=== PATIENT | female | born 1935 | race Caucasian/White ===

== ENCOUNTER 2020-05-16 11:01 | Emergency (ER) | payer MEDICARE, OTHER, SELFPAY ==
[2020-05-16 11:21] VITALS: BP 103/50; PULSE 82; RESP 16; TEMP 36.9; O2SAT 99
--- NOTE | 2020-05-16 11:29 | ED.FEMALEGU ---
HPI - Female Genitourinary General Chief complaint: Urogenital-Female Stated complaint: possible uti Time Seen by Provider: 05/16/20 11:38 Source: patient and RN notes reviewed History of Present Illness HPI Narrative: Patient is an 85-year-old female who presents the urgent care with complaints of bilateral flank pain and a possible UTI. Patient states that she has been doing a lot of yard work recently and has decreased her water intake. Patient denies of any fever, chills, nausea, vomiting, abdominal pain. Patient has not taken anything [id number] for her symptoms. No other acute complaints. No acute distress noted. Patient read the plan of care. Related Data Home Medications Medication Instructions Recorded Confirmed Adult Low Dose Aspirin 05/16/20 Calcium 600 with Vitamin D3 05/16/20 Calcium with Vitamin D 05/16/20 atorvastatin 05/16/20 05/16/20 diltiazem HCl 05/16/20 levothyroxine 05/16/20 paroxetine HCl mg PO 05/16/20 Allergies Allergy/AdvReac Type Severity Reaction Status Date / Time Sulfa (Sulfonamide Allergy Intermediate Swelling Verified 06/17/19 10:00 Antibiotics) enalapril Allergy Unknown Verified 06/17/19 10:00 lisinopril Allergy Unknown Verified 06/17/19 10:00 Review of Systems Review of Systems: Narrative: CONSTITUTIONAL: Denies fever, chills, or sweats. EYES: Denies visual changes, redness, or discharge. ENT: Denies rhinorrhea, congestion, sore throat, or otalgia. CARDIOVASCULAR: Denies chest pain, palpitations, or edema. RESPIRATORY: Denies cough or dyspnea. GASTROINTESTINAL: Denies abdominal pain, nausea, vomiting, or diarrhea. GENITOURINARY: Denies dysuria or hematuria. SKIN: Denies rash or itching. MUSCULOSKELETAL: Denies back pain, joint pain, or myalgia. NEUROLOGIC: Denies headache, numbness, or weakness. All other systems reviewed are negative, except as documented in HPI. PMFSH Comments At the time of my signature, I reviewed and agree with the nursing past medical, surgical, social, and family history. There is no relevant family history pertinent to the patient complaint. Exam Narrative: Exam Narrative: GENERAL: This is a well-nourished, well-developed patient, in no apparent distress. HEAD: normocephalic, atraumatic. EYES: PERRL. Sclera clear/white. Vision is grossly intact. EARS: External ears normal NOSE: External nose normal with no obvious nasal discharge, nares without redness, no rhinorrhea. THROAT: Mucous membranes moist NECK: Neck supple GASTROINTESTINAL: Abdomen soft, non-tender, nondistended. SKIN: warm, intact with no suspicious lesions or rash, good texture and turgor. NEURO: awake, alert, and oriented to person, place and time. There were no obvious focal neurologic abnormalities. EXTREMITIES: No clubbing, cyanosis, or edema. BACK: Negative bilateral CVA tenderness Course Vital Signs Vital signs: Vital Signs Temperature 98.5 F 05/16/20 11:21 Pulse Rate 82 05/16/20 11:21 Respiratory Rate 16 05/16/20 11:21 Blood Pressure 103/50 L 05/16/20 11:21 Pulse Oximetry 99 05/16/20 11:21 Temperature 98.5 F 05/16/20 11:21 Pulse Rate 82 05/16/20 11:21 Respiratory Rate 16 05/16/20 11:21 Blood Pressure 103/50 L 05/16/20 11:21 Pulse Oximetry 99 05/16/20 11:21 reviewed MDM - Female Genitourinary MDM Narrative Medical decision making narrative: Reviewed lab results with the patient. She is aware that her urine analysis was indicative of a urinary tract infection. Advised the patient to complete oral antibiotic regimen as prescribed. We will culture the urine and call if medication needs to be changed, based on culture results. Make sure to increase water intake and avoid sugary and caffeinated drinks. Eat and drink with the oral medication. If you develop any increase in symptoms associated with blood in the urine, abdominal pain, nausea, vomiting, fever?go to the emergency room. Follow-up with your PCP within 2 to 5 d
== END 2020-05-16 12:00 | disposition home or self-care (01) ==
PROVIDERS: Emergency Provider Nurse Practitioner Family
DX: N39.0 Urinary tract infection, site not specified (principal); E03.9 Hypothyroidism, unspecified
CPT/HCPCS: 81003; 87086; 99213; G0463